=== PATIENT | male | born 2000 | race Asian ===

== ENCOUNTER 2022-10-04 02:08 | Emergency (ER) | payer OTHER, SELFPAY ==
[2022-10-04] VITALS (7 sets, daily range): BP systolic 125–132; BP diastolic 65–91; PULSE 65–79; RESP 14–21; TEMP 36.7; O2SAT 95–100
--- NOTE | 2022-10-04 02:48 | ED.GENADULT ---
HPI - General Adult General Chief complaint: Nausea/Vomiting/Diarrhea Stated complaint: diarrhea Time Seen by Provider: 10/04/22 02:38 History of Present Illness HPI narrative: Patient 22-year-old gentleman who presents the emergency department with chief complaint of diarrhea and abdominal cramping. Patient reports that he drank some milk tea this evening and then started having multiple bouts of diarrhea patient states he had cramping in his abdomen reports he is feeling a little better now patient reports that has had no fever denies localizing abdominal pain Related Data Home Medications Medication Instructions Recorded Confirmed berberine-herbal comb no.18 capsule cap PO 10/04/22 Allergies Allergy/AdvReac Type Severity Reaction Status Date / Time No Known Allergies Allergy Verified 10/04/22 02:21 Review of Systems Review of Systems: A 10 system review of systems was completed on the patient and is negative except for what is stated in the HPI. Nursing and ancillary documentation was reviewed. Exam Narrative: GENERAL: Well-appearing, well-nourished, and in no acute distress. HEAD: Normocephalic, atraumatic. EYES: PERRLA and EOMI. ENT: Nares clear, no rhinorrhea or epistaxis. Mucous membranes moist. NECK: Supple. CHEST: Clear to auscultation. No respiratory distress. HEART: Regular rate and rhythm. No murmur heard. Normal peripheral pulses. ABDOMEN: Soft, nontender, nondistended, normal active bowel sounds. EXTREMITIES: Normal range of motion. No edema. SKIN: Warm, dry, no rash. NEURO: No focal deficits. Alert and oriented x3. PSYCH: Normal mood and affect. Course Vital Signs Vital signs: Vital Signs Temperature 36.7 C 10/04/22 02:12 Pulse Rate 69 10/04/22 02:12 Respiratory Rate 19 10/04/22 02:12 Blood Pressure 125/91 H 10/04/22 02:12 Pulse Oximetry 100 10/04/22 02:12 Oxygen Delivery Room Air 10/04/22 02:12 Temperature 36.7 C 10/04/22 02:12 Pulse Rate 71 10/04/22 03:31 Respiratory Rate 16 10/04/22 03:31 Blood Pressure 132/80 10/04/22 03:31 Pulse Oximetry 95 10/04/22 03:31 Oxygen Delivery Room Air 10/04/22 02:12 Medical Decision Making MDM Narrative Medical decision making narrative: Differential diagnosis includes gastroenteritis, dehydration, viral syndrome Patient's laboratory studies showed a white count of 16.3 Abdomen was nontender and not consistent with appendicitis. Patient feels much better at rest although does feel tired Vital Signs Vital Signs: Vital Signs Temperature 36.7 C 10/04/22 02:12 Pulse Rate 69 10/04/22 02:12 Respiratory Rate 19 10/04/22 02:12 Blood Pressure 125/91 H 10/04/22 02:12 Pulse Oximetry 100 10/04/22 02:12 Oxygen Delivery Room Air 10/04/22 02:12 Temperature 36.7 C 10/04/22 02:12 Pulse Rate 71 10/04/22 03:31 Respiratory Rate 16 10/04/22 03:31 Blood Pressure 132/80 10/04/22 03:31 Pulse Oximetry 95 10/04/22 03:31 Oxygen Delivery Room Air 10/04/22 02:12 Lab Data 10/04/22 02:48 10/04/22 02:48 Labs: Lab Results 10/04/22 10/04/22 10/04/22 Range/Units 02:48 02:48 03:44 WBC 16.3 H (4.5-10.0) K/mm3 RBC 5.49 (4.6-6.20) M/mm3 Hgb 16.0 (14.0-18.0) g/dL Hct 48.7 (42.0-52.0) % MCV 88.7 (80-100) fl MCH 29.1 (26-34) pg MCHC 32.9 (32-36) g/dl RDW 12.0 (11.5-14.5) % Plt Count 257 (150-375) k/mm3 MPV 10.5 H (7.4-10.4) fl Immature Gran % (Auto) 0.4 (0-0.5) % Neut % (Auto) 85.4 H (45.5-73.1) % Lymph % (Auto) 7.8 L (18.3-44.2) % Braxton % (Auto) 3.6 (2.6-8.5) % Eos % (Auto) 2.4 (0-4.4) % Baso % (Auto) 0.4 (0.2-1.2) % Lymph # (Auto) 1.27 (0.9-3.2) K/mm3 Braxton # (Auto) 0.6 (0.1-0.6) K/mm3 Eos # (Auto) 0.4 H (0-0.3) K/mm3 Baso # (Auto) 0.1 (0.0-0.1) K/mm3 Abs Immat Gran (auto) 0.06 H (0.00-0.031) K/mm3 Absolute Neuts (auto) 13.9 H (1.
[2022-10-04 03:01] LABS: Basophils Absolute Auto 0.1 K/mm3 (0.0-0.1); Basophils Percent Auto 0.4 % (0.2-1.2); Eosinophils Absolute Auto 0.4 K/mm3 (0-0.3); Eosinophils Percent Auto 2.4 % (0-4.4); Hematocrit 48.7 % (42.0-52.0); Immature Granulocyte Absolute 0.06 K/mm3 (0.00-0.031); Immature Granulocyte Percent A 0.4 % (0-0.5); Lymphocytes Absolute Auto 1.27 K/mm3 (0.9-3.2); Lymphocytes Percent Auto 7.8 % (18.3-44.2); Mean Corpuscular HGB Conc 32.9 g/dl (32-36); Mean Corpuscular Hemoglobin 29.1 pg (26-34); Mean Corpuscular Volume 88.7 fl (80-100); Mean Platelet Volume 10.5 fl (7.4-10.4); Monocytes Absolute Auto 0.6 K/mm3 (0.1-0.6); Monocytes Percent Auto 3.6 % (2.6-8.5); Neutrophils Absolute Auto 13.9 K/mm3 (1.3-6.7); Neutrophils Percent Auto 85.4 % (45.5-73.1); Platelet Count Result 257 k/mm3 (150-375); Red Blood Count 5.49 M/mm3 (4.6-6.20); White Blood Count 16.3 K/mm3 (4.5-10.0)
[2022-10-04] MEDS: ONDANSETRON INJ 4 MG/2 ML VIAL IV PUSH (03:04)
[2022-10-04] MEDS: SODIUM CHLORIDE 0.9% IV 1,000 ML 999 ML IV CONT (03:04)
[2022-10-04 03:13] LABS: Alanine Aminotransferase 17 U/L (6-50); Albumin Level 4.8 g/dL (3.5-5.1); Alkaline Phosphatase 85 U/L (38-126); Anion Gap 6 mmol/L (8-16); Aspartate Amino Transferase 22 U/L (17-59); Bilirubin,Total 0.7 mg/dL (0.2-1.3); Blood Urea Nitrogen 10 mg/dL (9-20); Calcium 8.9 mg/dL (8.4-10.2); Carbon Dioxide 29 mmol/L (22-30); Chloride 101 mmol/L (98-107); Estimated Glomerular Filt Rate > 60; Glucose 136 mg/dL (65-110); Lipase 63 U/L (23-300); Potassium 3.6 mmol/L (3.4-5.0); Sodium 136 mmol/L (137-145)
[2022-10-04 04:08] LABS: Mucus Urine Few /lpf; Squamous Epithelial Cell Urine Rare /hpf (Few)
[2022-10-04 04:09] LABS: Appearance Urine Clear (Clear); Bilirubin Urine Negative (Negative); Blood Urine Negative (Negative); Color Urine Yellow (Yellow); Glucose Urine UA Negative (Negative); Ketones Urine Trace mg/dL (Negative); Leukocyte Esterase Ur Negative LEU/UL (Negative); Nitrate Urine Negative (Negative); Protein Urine 1+ mg/dL (Negative); Urobilinogen Urine 0.2 mg/dL (<2.0)
[2022-10-04 04:23] LABS: Add Urine Microscopic? YES
== END 2022-10-04 04:50 | disposition home or self-care (01) ==
PROVIDERS: Emergency Provider Emergency Medicine
DX: K52.9 Noninfective gastroenteritis and colitis, unspecified (principal)
CPT/HCPCS: 36415; 80053; 81001; 83690; 85025; 96361; 96374; 99284; J2405; J7030